=== PATIENT | male | born 1960 | race Asian ===

== ENCOUNTER 2017-03-15 16:46 | Inpatient (IN) | payer OTHER, MEDICAID ==
[~2017-03-15] VITALS: Ht 165.1 cm; Wt 58.6 kg
[~2017-03-15 16:46] MED LIST: OLME20TA14 PO; OMEP20 PO; PRAV20TA4 PO; WARF2.5 PO
[2017-03-15] MEDS ORDERED: METO25 PO (16:57)
[2017-03-15 17:19] LABS: BASOPHILS % (AUTO) 0.1 % (0.0-2.0); EOSINOPHILS % (AUTO) 0.4 % (1.0-6.0); HEMATOCRIT 48.1 % (41-53); HEMOGLOBIN 16.1 g/dL (13.5-17.5); LYMPHOCYTES # (AUTO) 1.2 K/uL (1.0-4.8); LYMPHOCYTES % (AUTO) 7.4 % (22.0-44.0); MEAN CORPUSCULAR HEMOGLOBIN 30.2 pg (26.0-34.0); MEAN CORPUSCULAR HGB CONC 33.4 G/dL (31.0-37.0); MEAN CORPUSCULAR VOLUME 91 fL (80-100); MONOCYTES # (AUTO) 0.7 K/uL (0.1-1.0); MONOCYTES % (AUTO) 4.3 % (2.0-9.0); NEUTROPHILS # (AUTO) 14.4 K/uL (1.8-7.7); PLATELET COUNT (AUTO) 242 K/uL (150-450); RED BLOOD CELL COUNT(AUTO) 5.32 MIL/uL (4.50-5.90); RED CELL DISTRIBUTION WIDTH 14.2 % (11.5-14.5); WHITE BLOOD COUNT (AUTO) 16.4 K/uL (4.5-11.0)
[2017-03-15 17:20] LABS: NEUTROPHILS % (AUTO) 87.8 % (40.0-70.0)
[2017-03-15] MEDS ORDERED: SODIUM CHLORIDE 0.9% 2,000 ML IV ONE (17:30)
[2017-03-15] MEDS ORDERED: ONDANSETRON HCL 4 MG/2 ML VIAL IVP ONE (17:30)
[2017-03-15] MEDS ORDERED: FAMOTIDINE 10 MG/ML 2 ML VIAL IVP ONE (17:30)
[2017-03-15 17:31] LABS: CALCIUM, TOTAL 9.3 mg/dL (8.8-10.5); CREATININE 1.9 mg/dL (0.60-1.30); POTASSIUM 4.5 mmol/L (3.5-5.1)
[2017-03-15 17:35] LABS: ALBUMIN 4.8 g/dL (3.4-5.0); TOTAL PROTEIN, SERUM 8.7 g/dL (6.4-8.2)
[2017-03-15 19:44] LABS: APPEARANCE,URINE CLOUDY (CLEAR); GLUCOSE, URINE (UA) NEGATIVE (NEGATIVE); KETONES,URINE NEGATIVE (NEGATIVE); LEUKOCYTE ESTERASE ,URINE NEGATIVE (NEGATIVE); OCCULT BLOOD,URINE TRACE (NEGATIVE); PROTEIN,URINE POS 1+ (NEGATIVE)
[2017-03-15 19:47] LABS: ADD UA MICROSCOPIC YES
[2017-03-15 19:56] LABS: RBC,URINE 0-2 /HPF (0-2); SQUAMOUS EPITHELIAL CELL,UR Rare /LPF (None Seen); WBC,URINE 0-2 /HPF (0-5)
[2017-03-15] MEDS ORDERED: ACETAMINOPHEN 325 MG TABLET PO PRN (21:30)
[2017-03-15] MEDS ORDERED: MORPHINE SULFATE 4 MG/ML SYRINGE IVP PRN (21:30)
[2017-03-15] MEDS ORDERED: ONDANSETRON HCL 4 MG/2 ML VIAL IVP PRN (21:30)
[2017-03-15] MEDS ORDERED: 0.9% SODIUM CHLORIDE 10 ML SYRINGE IVP PRN (21:30)
[2017-03-15] MEDS ORDERED: SODIUM CHLORIDE 0.9% 1,000 ML IV ONE (21:30)
[2017-03-16] VITALS (10 sets, daily range): BP systolic 108–144; BP diastolic 66–88
[2017-03-16] MEDS: METOPROLOL TARTRATE 25 MG TABLET PO SCH ×2 (13:15→20:39)
[2017-03-16] MEDS: OLMESARTAN MEDOXOMIL 20 MG TABLET PO SCH (13:15)
[2017-03-16] MEDS ORDERED: 0.9% SODIUM CHLORIDE 10 ML SYRINGE IVP PRN (13:15)
[2017-03-16 14:28] LABS: ANION GAP 8 mmol/L (8-16); CARBON DIOXIDE 26 mmol/L (22-29); CHLORIDE 113 mmol/L (98-107); CREATININE 0.73 mg/dL (0.60-1.30); GLOMERULAR FILTR. RATE CALC > 60 mL/min (>60); POTASSIUM 4.6 mmol/L (3.5-5.1); SODIUM SERUM 147 mmol/L (136-145); UREA NITROGEN, BLOOD 10 mg/dL (7-18)
[2017-03-16] MEDS: PRAVASTATIN SODIUM 20 MG TABLET PO SCH (15:10)
[2017-03-16] MEDS: OMEPRAZOLE 20 MG CAPSULE PO SCH ×2 (15:11→20:39)
[2017-03-16] MEDS ORDERED: OMEP20 PO (15:17)
[2017-03-16] MEDS ORDERED: ASPI-1093 PO (17:50)
[2017-03-17 00:15] VITALS: BP 100/54
[2017-03-17 04:13] VITALS: BP 143/80
[2017-03-17 06:22] LABS: BASOPHILS % (AUTO) 0.2 % (0.0-2.0); EOSINOPHILS % (AUTO) 1.1 % (1.0-6.0); HEMATOCRIT 38.8 % (41-53); HEMOGLOBIN 13.1 g/dL (13.5-17.5); LYMPHOCYTES # (AUTO) 1.7 K/uL (1.0-4.8); LYMPHOCYTES % (AUTO) 27.4 % (22.0-44.0); MEAN CORPUSCULAR HEMOGLOBIN 30.6 pg (26.0-34.0); MEAN CORPUSCULAR HGB CONC 33.8 G/dL (31.0-37.0); MEAN CORPUSCULAR VOLUME 91 fL (80-100); MONOCYTES # (AUTO) 0.4 K/uL (0.1-1.0); MONOCYTES % (AUTO) 6.2 % (2.0-9.0); NEUTROPHILS % (AUTO) 65.1 % (40.0-70.0); PLATELET COUNT (AUTO) 214 K/uL (150-450); RED BLOOD CELL COUNT(AUTO) 4.28 MIL/uL (4.50-5.90); RED CELL DISTRIBUTION WIDTH 13.9 % (11.5-14.5); WHITE BLOOD COUNT (AUTO) 6.1 K/uL (4.5-11.0)
[2017-03-17 07:56] VITALS: BP 136/82
[2017-03-17] MEDS: PRAVASTATIN SODIUM 20 MG TABLET PO SCH (09:17)
[2017-03-17] MEDS: OLMESARTAN MEDOXOMIL 20 MG TABLET PO SCH (09:17)
[2017-03-17] MEDS: OMEPRAZOLE 20 MG CAPSULE PO SCH (09:17)
[2017-03-17] MEDS: METOPROLOL TARTRATE 25 MG TABLET PO SCH (09:17)
[2017-03-17 11:29] VITALS: BP 129/91
[2017-03-17 16:07] VITALS: BP 126/83
== END 2017-03-17 18:35 | disposition home or self-care (01) | DRG 438 ==
LOC: EMS 16:49 → AHU 03-16 00:05 → 5N 03-16 17:28
PROVIDERS: ADMIT Family Medicine; ATTEND Family Medicine
DX: K85.90 Acute pancreatitis without necrosis or infection, unspecified (principal); N17.0 Acute kidney failure with tubular necrosis; R65.11 Systemic inflammatory response syndrome (SIRS) of non-infectious origin with acute organ dysfunction; J98.11 Atelectasis; F41.0 Panic disorder [episodic paroxysmal anxiety]; F32.9 Major depressive disorder, single episode, unspecified; I51.7 Cardiomegaly; M47.814 Spondylosis without myelopathy or radiculopathy, thoracic region; Z88.5 Allergy status to narcotic agent; Z79.899 Other long term (current) drug therapy
CPT/HCPCS: 74176; 83735; 93005; 96361; 96374; 96375; 99285; J2405; J3490; J7030